=== PATIENT | male | born 1945 | race Caucasian/White ===

== ENCOUNTER → 2016-07-17 | Outpatient (REF) | payer MEDICARE, OTHER ==
[2016-07-17 11:35] LABS: ALBUMIN 4.3 GM/DL (3.2-5.2); ALBUMIN/GLOBULIN RATIO 1.34 (1.00-1.93); ALKALINE PHOSPHATASE 71 U/L (45-117); ALT/SGPT 16 U/L (12-78); ANION GAP 7 MEQ/L (8-16); AST/SGOT 21 U/L (15-37); BILIRUBIN,TOTAL 1.4 MG/DL (0.2-1.0); BLOOD UREA NITROGEN 12 MG/DL (7-18); CARBON DIOXIDE LEVEL 29 MEQ/L (21-32); CHLORIDE LEVEL 108 MEQ/L (98-107); CHOLESTEROL LEVEL 197 MG/DL (<200); CREATININE FOR GFR 1.08 MG/DL (0.70-1.30); GLOMERULAR FILTRATION RATE > 60.0 (>49); GLUCOSE, FASTING 102 MG/DL (80-110); POTASSIUM SERUM 4.1 MEQ/L (3.5-5.1); SODIUM LEVEL 144 MEQ/L (136-145); TOTAL PROTEIN 7.5 GM/DL (6.4-8.2); TRIGLYCERIDES LEVEL 63 MG/DL (<150)
== END ==
LOC: M SFHCPLAZ 08:26
PROVIDERS: ATTEND Physician Assistant
DX: E78.5 Hyperlipidemia, unspecified (principal)

== ENCOUNTER → 2016-09-16 | Outpatient (REF) | payer MEDICARE, OTHER ==
[2016-09-16 13:00] LABS: TOTAL PROTEIN 6.7 GM/DL (6.4-8.2)
[2016-09-16 13:09] LABS: REASON FOR REVIEW COMPREHENSIVE REVIEW
[2016-09-18 12:06] LABS: ALBUMIN 4.17 GM/DL (3.29-5.55); ALBUMIN % 62.2 % (55.8-66.1); GAMMA GLOBULIN % 12.2 % (11.1-18.8)
== END ==
LOC: M SFHCPLAZ 08:24
PROVIDERS: ATTEND Family Medicine
DX: D72.821 Monocytosis (symptomatic) (principal)

== ENCOUNTER → 2016-09-23 | Outpatient (REF) | payer MEDICARE, OTHER ==
[2016-09-23 18:14] LABS: BASO % 0.6 % (0.0-1.0); EOS # 0.3 K/mm3 (0.0-0.50); EOS % 4.1 % (0.0-3.0); LARGE UNSTAINED CELL # 0.2 K/mm3 (0.0-0.4); LARGE UNSTAINED CELL % 3.7 % (0.0-4.0); LYMPH # 1.6 K/mm3 (1.5-4.5); LYMPH % 22.7 % (24.0-44.0); MEAN CORPUSCULAR VOLUME 99.8 fl (80.0-96.0); MONO # 0.5 K/mm3 (0.0-0.8); MONO % 8.7 % (0.0-5.0); NEUTROPHILS # 3.8 K/mm3 (1.8-7.7); NEUTROPHILS % 60.2 % (36.0-66.0); PLATELET COUNT, AUTOMATED 198 k/mm3 (150-450); RED CELL DISTRIBUTION WIDTH 12.8 % (11.5-14.5); WHITE BLOOD COUNT 6.2 K/mm3 (4.0-10.0)
[2016-09-23 19:07] LABS: FOLATE 15.6 NG/ML (>5.4)
== END ==
LOC: M SFHCPLAZ 15:24
PROVIDERS: ATTEND Physician Assistant
DX: D75.89 Other specified diseases of blood and blood-forming organs (principal); E55.9 Vitamin D deficiency, unspecified
CPT/HCPCS: 36415; 82306; 82607; 82746; 85025; G0463

== ENCOUNTER → 2017-01-16 | Outpatient (CLI) | payer MEDICARE, BC, OTHER ==
--- NOTE | 2017-01-16 10:34 | REP ---
LUMBAR SPINE, SEVEN VIEWS: HISTORY: None provided. There is no acute fracture. The intervertebral discs are decreased in height consistent with disc degeneration. Osteophytes are present throughout the lumbar spine. There is narrowing of the L5-S1 facet joints. IMPRESSION: Degenerative change as described above. Signed by Claude Marquez MD 01/16/2017 11:05 A
--- NOTE | 2017-01-16 10:37 | REP ---
CERVICAL SPINE, NINE VIEWS: HISTORY: None provided. The patient is status post C5-T1 anterior spinal fusion. A fixation plate and bone graft material are present. There is no acute fracture. The C4-5 intervertebral disc is decreased in height consistent with disc degeneration. Osteophytes are present on C4-6. There is narrowing of the C5 and 6 neural foramina secondary to uncinate process hypertrophy. There are 2 mm of anterior subluxation of C3 on 4 and 1.5 mm of anterior subluxation of C4 on 5. This is unchanged with flexion and reduces with extension. IMPRESSION: 1. The patient is status post C5-T1 anterior spinal fusion. 2. Degenerative change as described above. Signed by Claude Marquez MD 01/16/2017 11:06 A
== END ==
LOC: M RAD 09:15
PROVIDERS: ATTEND Physician Assistant
DX: M54.5 Low back pain (principal); R29.898 Other symptoms and signs involving the musculoskeletal system; M50.321 Other cervical disc degeneration at C4-C5 level; M50.822 Other cervical disc disorders at C5-C6 level; M51.36 Other intervertebral disc degeneration, lumbar region; M51.37 Other intervertebral disc degeneration, lumbosacral region; Z98.1 Arthrodesis status

== ENCOUNTER → 2017-02-10 | Outpatient (REF) | payer MEDICARE, BC, OTHER ==
[2017-02-10 13:51] LABS: ALBUMIN 3.9 GM/DL (3.2-5.2); ALBUMIN/GLOBULIN RATIO 1.26 (1.00-1.93); ALKALINE PHOSPHATASE 61 U/L (45-117); ALT/SGPT 18 U/L (12-78); ANION GAP 7 MEQ/L (8-16); AST/SGOT 18 U/L (15-37); BILIRUBIN,DIRECT 0.3 MG/DL (0.0-0.2); BILIRUBIN,TOTAL 1.3 MG/DL (0.2-1.0); BLOOD UREA NITROGEN 10 MG/DL (7-18); CALCIUM LEVEL 9.3 MG/DL (8.8-10.2); CARBON DIOXIDE LEVEL 29 MEQ/L (21-32); CHLORIDE LEVEL 105 MEQ/L (98-107); GLOMERULAR FILTRATION RATE > 60.0 (>49); GLUCOSE, FASTING 105 MG/DL (80-110); SODIUM LEVEL 141 MEQ/L (136-145)
[2017-02-10 14:20] LABS: BASO % 0.3 % (0.0-1.0); EOS # 0.2 K/mm3 (0.0-0.50); LARGE UNSTAINED CELL # 0.1 K/mm3 (0.0-0.4); LARGE UNSTAINED CELL % 2.9 % (0.0-4.0); LYMPH # 0.8 K/mm3 (1.5-4.5); LYMPH % 25.1 % (24.0-44.0); MEAN CORPUSCULAR HEMOGLOBIN 35.6 pg (27.0-33.0); MEAN CORPUSCULAR HGB CONC 34.9 g/dl (32.0-36.5); MONO # 0.3 K/mm3 (0.0-0.8); MONO % 8.3 % (0.0-5.0); NEUTROPHILS # 1.9 K/mm3 (1.8-7.7); NEUTROPHILS % 58.4 % (36.0-66.0); PLATELET COUNT, AUTOMATED 166 k/mm3 (150-450); RED CELL DISTRIBUTION WIDTH 12.4 % (11.5-14.5); WHITE BLOOD COUNT 3.2 K/mm3 (4.0-10.0)
[2017-02-10 14:34] LABS: VITAMIN B12 LEVEL 561 PG/ML
[2017-02-10 14:35] LABS: FOLATE > 24.0 NG/ML
== END ==
LOC: M SFHCPLAZ 11:27
PROVIDERS: ATTEND Family Medicine
DX: E80.6 Other disorders of bilirubin metabolism (principal); D75.89 Other specified diseases of blood and blood-forming organs
CPT/HCPCS: 80053; 82248; 82607; 82746; 85025; G0463

== ENCOUNTER → 2017-04-09 | Outpatient (CLI) | payer MEDICARE, BC, OTHER ==
--- NOTE | 2017-04-09 09:05 | REP ---
RIGHT UPPER QUADRANT ULTRASOUND: Real-time sonographic evaluation of the right upper quadrant performed. Several tiny polyps are seen within the gallbladder without evidence of gallstones. There is no gallbladder wall thickening or pericholecystic fluid. There is no intrahepatic or extrahepatic biliary dilatation, common bile duct measuring 5 mm in diameter. The liver and pancreas demonstrate homogeneous echotexture with no gross mass. Right kidney demonstrates no hydronephrosis or nephrolithiasis with normal size at 11.3 cm in length. IMPRESSION: Several tiny polyps in the gallbladder. No gallstones, gallbladder wall thickening, pericholecystic fluid or biliary dilatation. Signed by Tony Gamez MD 04/09/2017 04:40 P
== END ==
LOC: M RAD 07:12
PROVIDERS: ATTEND Family Medicine
DX: E80.6 Other disorders of bilirubin metabolism (principal); K82.8 Other specified diseases of gallbladder; D72.821 Monocytosis (symptomatic)

== ENCOUNTER → 2017-04-09 | Outpatient (REF) | payer MEDICARE, OTHER ==
[2017-04-09 12:21] LABS: ALBUMIN 3.9 GM/DL (3.2-5.2); ALBUMIN/GLOBULIN RATIO 1.22 (1.00-1.93); ALKALINE PHOSPHATASE 66 U/L (45-117); ALT/SGPT 15 U/L (12-78); AST/SGOT 21 U/L (15-37); BILIRUBIN,DIRECT 0.3 MG/DL (0.0-0.2); BILIRUBIN,TOTAL 1.3 MG/DL (0.2-1.0); TOTAL PROTEIN 7.1 GM/DL (6.4-8.2)
[2017-04-10 12:10] LABS: ALBUMIN 4.33 GM/DL (3.29-5.55); GAMMA GLOBULIN % 12.8 % (11.1-18.8)
== END ==
LOC: M SFHCPLAZ 09:09
PROVIDERS: ATTEND Family Medicine
DX: E80.6 Other disorders of bilirubin metabolism (principal); D72.821 Monocytosis (symptomatic)

== ENCOUNTER → 2017-04-21 | Outpatient (REF) | payer MEDICARE, OTHER ==
[2017-04-21 17:26] LABS: REASON FOR REVIEW COMPREHENSIVE REVIEW
== END ==
LOC: M SFHCPLAZ 14:56
PROVIDERS: ATTEND Family Medicine
DX: Z00.00 Encounter for general adult medical examination without abnormal findings (principal); E80.6 Other disorders of bilirubin metabolism; D53.9 Nutritional anemia, unspecified; E78.00 Pure hypercholesterolemia, unspecified; Z12.5 Encounter for screening for malignant neoplasm of prostate; Z11.59 Encounter for screening for other viral diseases; K82.4 Cholesterolosis of gallbladder; Z13.6 Encounter for screening for cardiovascular disorders; Z12.12 Encounter for screening for malignant neoplasm of rectum
CPT/HCPCS: 36415; 80061; 82270; 83010; 83540; 86704; G0103; G0463; G0472

== ENCOUNTER → 2017-04-24 | Outpatient (CLI) | payer MEDICARE, BC, OTHER ==
--- NOTE | 2017-04-24 11:03 | REP ---
Abdominal aorta ultrasound: Abdominal Aortic Measurements are as follows: Proximal 323 the AP 3.0 cm TRV Renal Artery Level 2.0 cm AP 2.8 cm TRV Mid Aorta 2.2 cm AP 1.8 cm TRV Distal Aorta 1.6 cm AP 1.7 cm TRV R Iliac Artery 8.8 cm AP 11.0 cm TRV L Iliac Artery 8.9 cm AP 9.8 cm TRV No abdominal aortic aneurysm. The proximal abdominal aorta is borderline dilated. Signed by Tony Adhikari MD 04/24/2017 10:54 A
== END ==
LOC: M RAD 08:38
PROVIDERS: ATTEND Family Medicine
DX: Z13.6 Encounter for screening for cardiovascular disorders (principal)

== ENCOUNTER → 2017-08-19 | Outpatient (REF) | payer MEDICARE, OTHER ==
[2017-08-19 14:02] LABS: C REACTIVE PROTEIN QUANTITATIV < 0.30 MG/DL (0.00-0.30); FREE T4 0.94 NG/DL (0.76-1.46)
[2017-08-19 14:08] LABS: BASO % 0.8 % (0.0-1.0); EOS # 0.2 10^3/uL (0.0-0.50); HEMATOCRIT 41.7 % (42.0-52.0); HEMOGLOBIN 14.7 g/dl (14.0-18.0); IMMATURE GRANULOCYTE % 0.5 % (0-3.0); LYMPH # 0.8 10^3/uL (1.5-4.5); MEAN CORPUSCULAR HEMOGLOBIN 35.4 pg (27.0-33.0); MEAN CORPUSCULAR HGB CONC 35.3 g/dl (32.0-36.5); MEAN CORPUSCULAR VOLUME 100.5 fl (80.0-96.0); MONO # 0.5 10^3/uL (0.0-0.8); MONO % 11.8 % (0.0-5.0); NEUTROPHILS # 2.3 10^3/uL (1.8-7.7); NEUTROPHILS % 58.9 % (36.0-66.0); PLATELET COUNT, AUTOMATED 163 10^3/uL (150-450); RED BLOOD COUNT 4.15 10^6/uL (4.30-6.10); RED CELL DISTRIBUTION WIDTH 12.5 % (11.5-14.5); WHITE BLOOD COUNT 3.8 10^3/uL (4.0-10.0)
[2017-08-19 14:58] LABS: ERYTHROCYTE SEDIMENTATION RATE 10 mm/hr (0-20)
== END ==
LOC: M SFHCPLAZ 12:19
DX: D53.9 Nutritional anemia, unspecified (principal); R53.82 Chronic fatigue, unspecified; Z79.899 Other long term (current) drug therapy
CPT/HCPCS: 84443

== ENCOUNTER → 2017-09-30 | Outpatient (REF) | payer MEDICARE, OTHER ==
[2017-09-30 13:57] LABS: TOTAL PROTEIN 7.3 GM/DL (6.4-8.2)
[2017-09-30 18:21] LABS: URINE TOTAL PROTEIN 6.5 MG/DL (0-12)
[2017-10-01 13:02] LABS: ALBUMIN 4.48 GM/DL (3.29-5.55); ALBUMIN % 61.4 % (55.8-66.1); ALPHA-1-GLOBULINS 0.29 GM/DL (0.17-0.41); ALPHA-2-GLOBULINS 0.74 GM/DL (0.42-0.99); ALPHA-2-GLOBULINS % 10.1 % (7.1-11.8); BETA-1-GLOBULINS 0.45 GM/DL (0.28-0.60); BETA-1-GLOBULINS % 6.1 % (4.7-7.2); BETA-2-GLOBULINS 0.42 GM/DL (0.19-0.55); BETA-2-GLOBULINS % 5.8 % (3.2-6.5); GAMMA GLOBULIN % 12.6 % (11.1-18.8); GAMMA GLOBULINS 0.92 GM/DL (0.65-1.58)
[2017-10-01 14:04] LABS: UPEP INTERPRETATION NO M-SPIKE NOTED; URINE VOLUME RANDOM ML
== END ==
LOC: M SFHCPLAZ 12:03
DX: D72.821 Monocytosis (symptomatic) (principal)
CPT/HCPCS: 84165

== ENCOUNTER → 2017-10-28 | Outpatient (REF) | payer MEDICARE, OTHER ==
[2017-10-28 16:07] LABS: VITAMIN B12 LEVEL 589 PG/ML (247-911)
== END ==
LOC: M SFHCPLAZ 12:53
DX: G62.9 Polyneuropathy, unspecified (principal)
CPT/HCPCS: 82607

== ENCOUNTER → 2017-10-30 | Outpatient (REF) | payer MEDICARE, OTHER | LOC: M SFHCPLAZ 13:59 | DX: M54.9 Dorsalgia, unspecified (principal) | CPT/HCPCS: 36415 ==

== ENCOUNTER → 2018-04-23 | Outpatient (REF) | payer MEDICARE, OTHER ==
[2018-04-23 14:04] LABS: CHOLESTEROL LEVEL 182 MG/DL (<200); HDL CHOLESTEROL 70 MG/DL (>40); LDL CHOLESTEROL 98 MG/DL (<100); NON-HDL-C 112 MG/DL; TRIGLYCERIDES LEVEL 68 MG/DL (<150)
[2018-04-23 14:21] LABS: BASO % 0.7 % (0.0-1.0); EOS # 0.2 10^3/uL (0.0-0.50); EOS % 5.2 % (0.0-3.0); HEMATOCRIT 41.5 % (42.0-52.0); HEMOGLOBIN 14.4 g/dl (13.5-17.5); IMMATURE GRANULOCYTE % 1.7 % (0-3.0); LYMPH # 0.8 10^3/uL (1.5-4.5); MEAN CORPUSCULAR HEMOGLOBIN 35.8 pg (27.0-33.0); MEAN CORPUSCULAR HGB CONC 34.7 g/dl (32.0-36.5); MEAN CORPUSCULAR VOLUME 103.2 fl (80.0-96.0); MONO # 0.6 10^3/uL (0.0-0.8); MONO % 13.5 % (0.0-5.0); NEUTROPHILS # 2.5 10^3/uL (1.8-7.7); NEUTROPHILS % 59.9 % (36.0-66.0); PLATELET COUNT, AUTOMATED 178 10^3/uL (150-450); RED BLOOD COUNT 4.02 10^6/uL (4.30-6.10); RED CELL DISTRIBUTION WIDTH 12.4 % (11.5-14.5); WHITE BLOOD COUNT 4.2 10^3/uL (4.0-10.0)
== END ==
LOC: M SFHCPLAZ 11:09
DX: D72.1 Eosinophilia (principal); E78.5 Hyperlipidemia, unspecified
CPT/HCPCS: 80061

== ENCOUNTER → 2018-10-08 | Outpatient (CLI) | payer MEDICARE, BC, OTHER ==
--- NOTE | 2018-10-08 16:23 | REP ---
UNILATERAL LEFT RIBS, PA CHEST: HISTORY: Abnormal x-ray. The lungs are clear. The heart is normal in size. The pulmonary vasculature is normal in appearance. The bony structure is intact. IMPRESSION:No acute disease. Electronically Signed by Claude Marquez MD 10/08/2018 04:24 P
== END ==
LOC: M RAD 14:40
PROVIDERS: ATTEND Family Medicine
DX: R93.89 Abnormal findings on diagnostic imaging of other specified body structures (principal)

== ENCOUNTER 2018-11-10 10:28 | Outpatient (RCR) | payer MEDICARE, BC, OTHER | END 2018-11-13 | LOC: M OT 10:28 | PROVIDERS: ATTEND Family Medicine | DX: R29.898 Other symptoms and signs involving the musculoskeletal system (principal) ==

== ENCOUNTER 2018-11-17 12:57 | Outpatient (RCR) | payer MEDICARE, BC, OTHER | END 2018-12-13 | LOC: M OT 12:57 | PROVIDERS: ATTEND Family Medicine | DX: R29.898 Other symptoms and signs involving the musculoskeletal system (principal) ==

== ENCOUNTER → 2019-07-02 | Outpatient (CLI) | payer MEDICARE, BC, OTHER ==
[2019-07-02 12:13] LABS: BASO % 0.6 % (0.0-1.0); EOS # 0.3 10^3/uL (0.0-0.5); EOS % 9.8 % (0.0-3.0); HEMATOCRIT 41.5 % (42.0-52.0); HEMOGLOBIN 13.7 g/dl (13.5-17.5); LYMPH # 0.8 10^3/uL (1.5-5.0); LYMPH % 21.6 % (24.0-44.0); MEAN CORPUSCULAR HEMOGLOBIN 34.6 pg (27.0-33.0); MEAN CORPUSCULAR VOLUME 104.8 fl (80.0-96.0); MONO # 0.7 10^3/uL (0.0-0.8); MONO % 20.4 % (0.0-5.0); NEUTROPHILS # 1.6 10^3/uL (1.5-8.5); NEUTROPHILS % 46.7 % (36.0-66.0); PLATELET COUNT, AUTOMATED 168 10^3/uL (150-450); RED BLOOD COUNT 3.96 10^6/uL (4.30-6.10); WHITE BLOOD COUNT 3.5 10^3/uL (4.0-10.0)
[2019-07-02 12:46] LABS: ALT/SGPT 13 U/L (12-78); BILIRUBIN,DIRECT 0.4 MG/DL (0.0-0.2); BILIRUBIN,TOTAL 1.6 MG/DL (0.2-1.0); BLOOD UREA NITROGEN 15 MG/DL (7-18); CALCIUM LEVEL 8.8 MG/DL (8.8-10.2); CARBON DIOXIDE LEVEL 28 MEQ/L (21-32); CHLORIDE LEVEL 106 MEQ/L (98-107); CHOLESTEROL LEVEL 179 MG/DL (<200); CHOLESTEROL RISK RATIO 2.594 (<5); CREATININE FOR GFR 0.99 MG/DL (0.70-1.30); FREE T4 1.06 NG/DL (0.76-1.46); GLOMERULAR FILTRATION RATE > 60.0 (>42); GLUCOSE, FASTING 97 MG/DL (70-100); HDL CHOLESTEROL 69 MG/DL (>40); LDL CHOLESTEROL 100 MG/DL (<100); NON-HDL-C 110 MG/DL; POTASSIUM SERUM 3.9 MEQ/L (3.5-5.1); SODIUM LEVEL 141 MEQ/L (136-145); TOTAL PROTEIN 7.1 GM/DL (6.4-8.2); TRIGLYCERIDES LEVEL 52 MG/DL (<150)
[2019-07-02 12:50] LABS: PTH INTACT 41.5 PG/ML (18.5-88.0)
[2019-07-02 12:51] LABS: VITAMIN B12 LEVEL 1075 PG/ML (247-911)
== END ==
LOC: M PLALAB 09:02
PROVIDERS: ATTEND Physician Assistant Medical
DX: E78.5 Hyperlipidemia, unspecified (principal); E80.6 Other disorders of bilirubin metabolism; D75.89 Other specified diseases of blood and blood-forming organs; E55.9 Vitamin D deficiency, unspecified; R53.82 Chronic fatigue, unspecified

== ENCOUNTER → 2019-08-11 | Outpatient (CLI) | payer MEDICARE, BC, OTHER ==
--- NOTE | 2019-08-11 16:47 | REPPI ---
RIGHT WRIST, FOUR VIEWS: Four views of the right wrist were performed. No acute fracture or dislocation is seen. There is mild radiocarpal joint space narrowing and subchondral sclerosis. There is moderate narrowing with subchondral sclerosis and spurring at the joint between the trapezium and base of first metacarpal. IMPRESSION: Arthritic changes. Electronically Signed by Tony Gamez MD 08/12/2019 10:33 A
== END ==
LOC: M PLAIMG 14:09
PROVIDERS: ATTEND Physician Assistant Medical
DX: M19.031 Primary osteoarthritis, right wrist (principal)

== ENCOUNTER → 2019-08-16 | Outpatient (CLI) | payer MEDICARE, BC, OTHER ==
[2019-08-16 14:11] LABS: BLOOD UREA NITROGEN 12 MG/DL (7-18); CREATININE FOR GFR 0.93 MG/DL (0.70-1.30); GLOMERULAR FILTRATION RATE > 60.0 (>42)
== END ==
LOC: M PLALAB 10:39
PROVIDERS: ATTEND Physician Assistant Medical
DX: H53.9 Unspecified visual disturbance (principal)

== ENCOUNTER → 2019-08-18 | Outpatient (CLI) | payer MEDICARE, BC, OTHER ==
[~2019-08-18] MED LIST: PROHANCE 279.3MG/ML 15ML VIAL (A9576) As Ordered ONE; PROHANCE 279.3MG/ML 5ML VIAL (A9576) As Ordered ONE
--- NOTE | 2019-08-18 20:27 | REPVR ---
PROCEDURE INFORMATION: Exam: MR Head Without and With Contrast Exam date and time: 08/18/2019 7:25 PM Age: 74 years old Clinical indication: Visual disturbance TECHNIQUE: Imaging protocol: MR of the head without and with intravenous contrast. Contrast material: PROHANCE; Contrast volume: 16 ml; Contrast route: IV; COMPARISON: No relevant prior studies available. FINDINGS: Brain: Nonspecific T2/FLAIR hyperintensities of the periventricular and deep subcortical white matter, most likely secondary to chronic small vessel ischemic change. No intracranial hemorrhage or extra-axial fluid collection. No evidence of mass effect or midline shift. No areas of abnormal enhancement. No restricted diffusion to suggest acute infarct. Ventricles: Prominence of the ventricles and sulci, likely attributed to parenchymal volume loss. Bones/joints: Unremarkable. Soft tissues: Unremarkable. Sinuses: Unremarkable. Mastoid air cells: No mastoid effusion. Orbits: Unremarkable. IMPRESSION: 1. No acute intracranial pathology. 2. Other chronic findings, as above. Electronically signed by: Estiven Mckinney On 08/18/2019 20:26:59 PM
== END ==
LOC: M RAD 17:47
PROVIDERS: ATTEND Physician Assistant Medical
DX: H53.9 Unspecified visual disturbance (principal)
CPT/HCPCS: 70553; A9576

== ENCOUNTER → 2019-11-09 | Outpatient (CLI) | payer MEDICARE, OTHER ==
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
== END ==
LOC: M PAIN 09:15
PROVIDERS: ATTEND Nurse Practitioner Family
DX: M48.062 Spinal stenosis, lumbar region with neurogenic claudication (principal)

== ENCOUNTER → 2020-01-17 | Outpatient (REF) | payer MEDICARE, OTHER ==
[2020-02-13 20:25] LABS: BASO % 0.8 % (0.0-1.0); EOS # 0.3 10^3/uL (0.0-0.5); EOS % 8.5 % (0.0-3.0); HEMATOCRIT 40.4 % (42.0-52.0); HEMOGLOBIN 13.7 g/dl (13.5-17.5); LYMPH # 0.7 10^3/uL (1.5-5.0); LYMPH % 18.3 % (24.0-44.0); MEAN CORPUSCULAR HEMOGLOBIN 34.9 pg (27.0-33.0); MEAN CORPUSCULAR HGB CONC 33.9 g/dl (32.0-36.5); MEAN CORPUSCULAR VOLUME 103.1 fl (80.0-96.0); MONO # 0.5 10^3/uL (0.0-0.8); MONO % 14.1 % (0.0-5.0); NEUTROPHILS # 2.1 10^3/uL (1.5-8.5); PLATELET COUNT, AUTOMATED 153 10^3/uL (150-450); RED BLOOD COUNT 3.92 10^6/uL (4.30-6.10); WHITE BLOOD COUNT 3.6 10^3/uL (4.0-10.0)
[2020-02-13 20:27] LABS: HEMATOCRIT 40.4 % (42.0-52.0)
[2020-02-28 12:00] LABS: ALBUMIN 4.2 GM/DL (3.2-5.2); ALT/SGPT 18 U/L (12-78); BILIRUBIN,TOTAL 1.7 MG/DL (0.2-1.0); BLOOD UREA NITROGEN 15 MG/DL (7-18); CALCIUM LEVEL 9.2 MG/DL (8.8-10.2); CARBON DIOXIDE LEVEL 30 MEQ/L (21-32); CHLORIDE LEVEL 106 MEQ/L (98-107); CREATININE FOR GFR 1.02 MG/DL (0.70-1.30); GLOMERULAR FILTRATION RATE > 60.0 (>42); GLUCOSE, FASTING 95 MG/DL (70-100); POTASSIUM SERUM 4.7 MEQ/L (3.5-5.1); PTH INTACT 33.3 PG/ML (18.5-88.0); SODIUM LEVEL 138 MEQ/L (136-145); TOTAL 25(OH) VITAMIN D 52.2 NG/ML (30.0-100.0); TOTAL PROTEIN 7.1 GM/DL (6.4-8.2); VITAMIN B12 LEVEL 795 PG/ML (247-911)
== END ==
LOC: M SFHCPLAZ 12:24
PROVIDERS: ATTEND Physician Assistant Medical
DX: M62.542 Muscle wasting and atrophy, not elsewhere classified, left hand (principal); D72.1 Eosinophilia; Z79.899 Other long term (current) drug therapy
CPT/HCPCS: 36415; 80053; 82306; 82607; 82747; 83970; 85025; G0103

== ENCOUNTER → 2020-02-09 | Outpatient (CLI) | payer MEDICARE, OTHER | LOC: M PAIN 10:01 | PROVIDERS: ATTEND Nurse Practitioner Family | DX: M47.816 Spondylosis without myelopathy or radiculopathy, lumbar region (principal) ==

== ENCOUNTER → 2020-02-19 | Outpatient (CLI) | payer MEDICARE, BC, OTHER | LOC: M LABSMTC 11:08 | PROVIDERS: ATTEND Anesthesiology | DX: Z20.828 Contact with and (suspected) exposure to other viral communicable diseases (principal) | CPT/HCPCS: C9803; U0003 ==

== ENCOUNTER → 2020-02-24 | Outpatient (CLI) | payer MEDICARE, OTHER ==
[~2020-02-24] MED LIST changes: +ISOVUE-M 300 61% 15ML VIAL As Ordered ONE; +LIDOCAINE 1% SDV 30ML VIAL As Ordered ONE; +NORCO, ANEXSIA 5/325MG TABLET (HYDROcodone/ACETAMINOPHEN) As Ordered ONE; -PROHANCE 279.3MG/ML 15ML VIAL (A9576) As Ordered ONE; -PROHANCE 279.3MG/ML 5ML VIAL (A9576) As Ordered ONE; +methylPREDNISolone SUSP 40MG/ML 1ML VIAL (DEPO MEDROL) As Ordered ONE
--- NOTE | 2020-03-15 10:54 | REP ---
FLURO-GUIDED SPINE INJECTION: CLINICAL: Lower back pain. TECHNIQUE: Intraoperative fluoroscopic imaging using portable C-arm technique. FINDINGS: Intraoperative fluoroscopic images demonstrate needle overlying the lower lumbar spine. Total fluoroscopic time is 20 seconds. IMPRESSION: Status post spine injection at the lumbar level. MTDD
== END ==
LOC: M PAIN 14:30
PROVIDERS: ATTEND Anesthesiology
DX: M51.16 Intervertebral disc disorders with radiculopathy, lumbar region (principal)
CPT/HCPCS: 62323; 77003; G0463; J1030; Q9967

== ENCOUNTER → 2020-03-08 | Outpatient (CLI) | payer MEDICARE, OTHER | LOC: M PAIN 10:31 | PROVIDERS: ATTEND Nurse Practitioner Family | DX: M47.816 Spondylosis without myelopathy or radiculopathy, lumbar region (principal) ==

== ENCOUNTER → 2020-05-26 | Outpatient (CLI) | payer MEDICARE, BC, OTHER ==
[~2020-05-26] MED LIST changes: +FLON1SPR NARES; +GLYCCAP PO; -ISOVUE-M 300 61% 15ML VIAL As Ordered ONE; -LIDOCAINE 1% SDV 30ML VIAL As Ordered ONE; -NORCO, ANEXSIA 5/325MG TABLET (HYDROcodone/ACETAMINOPHEN) As Ordered ONE; +OSTE1TAB2 PO; +REFR0.5D8 OP; +SALI0.6530 NARES; -methylPREDNISolone SUSP 40MG/ML 1ML VIAL (DEPO MEDROL) As Ordered ONE
== END ==
LOC: M LABSMTC 10:57
DX: Z01.818 Encounter for other preprocedural examination (principal); Z20.828 Contact with and (suspected) exposure to other viral communicable diseases

== ENCOUNTER → 2020-09-29 | Outpatient (REF) | payer MEDICARE, OTHER ==
[~2020-09-29] MED LIST changes: +COVI100V IM
[2020-09-29 13:09] LABS: BASO % 0.6 % (0.0-1.0); EOS # 0.2 10^3/uL (0.0-0.5); EOS % 6.2 % (0.0-3.0); HEMATOCRIT 40.6 % (42.0-52.0); HEMOGLOBIN 13.9 g/dl (13.5-17.5); LYMPH # 0.7 10^3/uL (1.5-5.0); LYMPH % 21.1 % (24.0-44.0); MEAN CORPUSCULAR HEMOGLOBIN 35.5 pg (27.0-33.0); MEAN CORPUSCULAR HGB CONC 34.2 g/dl (32.0-36.5); MEAN CORPUSCULAR VOLUME 103.8 fl (80.0-96.0); MONO # 0.5 10^3/uL (0.0-0.8); MONO % 15.2 % (2.0-8.0); NEUTROPHILS # 1.8 10^3/uL (1.5-8.5); PLATELET COUNT, AUTOMATED 182 10^3/uL (150-450); RED BLOOD COUNT 3.91 10^6/uL (4.30-6.10); WHITE BLOOD COUNT 3.2 10^3/uL (4.0-10.0)
[2020-09-29 13:54] LABS: ALBUMIN 3.9 GM/DL (3.2-5.2); ALT/SGPT 16 U/L (12-78); BILIRUBIN,DIRECT 0.3 MG/DL (0.0-0.2); BILIRUBIN,TOTAL 0.9 MG/DL (0.2-1.0); BLOOD UREA NITROGEN 15 MG/DL (7-18); CALCIUM LEVEL 9.5 MG/DL (8.8-10.2); CARBON DIOXIDE LEVEL 29 MEQ/L (21-32); CHLORIDE LEVEL 104 MEQ/L (98-107); CHOLESTEROL LEVEL 190 MG/DL (<200); CHOLESTEROL RISK RATIO 2.878 (<5); CREATININE FOR GFR 0.88 MG/DL (0.70-1.30); GLOMERULAR FILTRATION RATE > 60.0 (>42); GLUCOSE, FASTING 110 MG/DL (70-100); HDL CHOLESTEROL 66 MG/DL (>40); LDH LACTATE DEHYDROGENASE 237 U/L (87-241); LDL CHOLESTEROL 111 MG/DL (<100); NON-HDL-C 124 MG/DL; POTASSIUM SERUM 4.2 MEQ/L (3.5-5.1); PTH INTACT 43.4 PG/ML (18.5-88.0); SODIUM LEVEL 138 MEQ/L (136-145); TOTAL 25(OH) VITAMIN D 32.7 NG/ML (30.0-100.0); TOTAL PROTEIN 7.1 GM/DL (6.4-8.2); TRIGLYCERIDES LEVEL 63 MG/DL (<150); VITAMIN B12 LEVEL 593 PG/ML (247-911)
== END ==
LOC: M SFHCPLAZ 11:22
PROVIDERS: ATTEND Physician Assistant Medical
DX: E78.5 Hyperlipidemia, unspecified (principal); E53.8 Deficiency of other specified B group vitamins; E55.9 Vitamin D deficiency, unspecified; E80.6 Other disorders of bilirubin metabolism; D75.89 Other specified diseases of blood and blood-forming organs
CPT/HCPCS: 36415; 80053; 80061; 82248; 82306; 82607; 83615; 83970; 85025; G0463

== ENCOUNTER → 2020-10-18 | Outpatient (CLI) | payer MEDICARE, BC, OTHER ==
[~2020-10-18] MED LIST changes: -COVI100V IM
--- NOTE | 2020-10-18 14:40 | REP ---
INDICATION: DYSEQUILBRIUM COMPARISON: None. TECHNIQUE: Real-time ultrasound evaluation and duplex Doppler interrogation of the extracranial carotid vasculature is performed. FINDINGS: Antegrade flow is observed in both vertebral arteries. Right carotid: The right common carotid artery shows diffuse intimal thickening but is otherwise unremarkable. There mild to moderate mixed plaquing in the right carotid bulb and proximal ICA on two-dimensional scanning. Color flow and spectral Doppler interrogation are unremarkable on the right. Velocity chart right carotid: Right CCA PSV: 73 cm/S Right ICA PSV: 97 cm/S Right ICA EDV: 22 cm/S Right ECA PSV: 85 cm/S Right ICA/CCA ratio: 1.33 Left carotid: The left common carotid artery shows diffuse intimal thickening but is otherwise unremarkable. There is mild to moderate mixed plaquing in the left carotid bulb and proximal ICA on two-dimensional scanning. Color flow and spectral Doppler interrogation are unremarkable on the left. Velocity chart left carotid: Left CCA PSV: 90 cm/S Left ICA PSV: 61 cm/S Left ICA EDV: 24 cm/S Left ECA PSV: 67 cm/S Left ICA/CCA ratio: 0.68 IMPRESSION: Less than 50% category narrowing in the right internal carotid artery by Doppler velocity criteria. Less than 50% category narrowing in the left ICA by Doppler velocity criteria. <Electronically signed by Forrest Mejias > 10/18/20 [id number]
== END ==
LOC: M RAD 13:47
PROVIDERS: ATTEND Physician Assistant Medical
DX: R42 Dizziness and giddiness (principal); R09.89 Other specified symptoms and signs involving the circulatory and respiratory systems

== ENCOUNTER → 2020-11-07 | Outpatient (CLI) | payer MEDICARE, BC, OTHER ==
[~2020-11-07] MED LIST changes: +COVI100V IM; +ISOVUE-300 61% 50ML VIAL As Ordered ONE; +PROHANCE 279.3MG/ML 5ML VIAL As Ordered ONE
--- NOTE | 2020-11-07 09:54 | REP ---
INDICATION: SOFT TISSUE DISORDER RIGHT WRIST. COMPARISON: None TECHNIQUE: The procedure was performed by Giselle Trevizo [facility], under the direct supervision of Dr. Mejias. The benefits and risks of the procedure were explained to the patient, and an informed consent was obtained. Directly prior to the start of the procedure, a formal time-out was completed in the procedure room. The right radioscaphoid joint space was localized using fluoroscopic guidance. The skin was prepped and draped in a sterile fashion. Using a 25 gauge needle approximately 1 mL of 1% Lidocaine 10 mg/ml was used as a local anesthetic. This same needle was advanced into the right radioscaphoid joint space. Approximately 1 mL of Isovue 300 was injected to verify placement. Six mL of a solution containing 20 mL of sterile saline and 0.15 mL of ProHance was injected into the joint space. The needle was removed and the patient was taken to MRI for post procedural imaging. FINDINGS: The patient tolerated the procedure well and there were no immediate complications. IMPRESSION: Fluoroscopic guided right radioscaphoid joint MRI arthrogram injection. 0.2 minutes of fluoroscopy time was utilized for this procedure. Some fluoroscopic images are performed with last image hold technology. These images require no additional radiation. <Electronically signed by Giselle Trevizo > 11/07/20 0901 <Electronically signed by Forrest Mejias > 11/07/20 0937
--- NOTE | 2020-11-07 13:09 | REP ---
INDICATION: SOFT TISSUE DISORDER RIGHT WRIST. Assess for possible rupture of the flexi carpi radialis tendon or other intra-articular disorder of the right wrist. Patient's pain volar aspect middle of the right wrist. COMPARISON: Comparison wrist radiographs are from August [id number].. TECHNIQUE: The injection procedure is performed and dictated separately. Pre-injection and post injection MR imaging of the right wrist were is performed in all 3 planes. T1 and T2 weighted scans are included. FINDINGS: There is moderate osteoarthritis at the 1st carpometacarpal articulation and there is subcortical cyst formation in the base of the 1st metacarpal as seen radiographically. The largest cyst here measures 7 mm in greatest diameter. There is subcortical cyst formation at the navicula- multangular articulation as well involving the distal navicular bone. There are small subcortical cysts in the dorsal aspect of the lunate and in the dorsal aspect of the triquetrum. No juxta-articular cyst or fluid collection is seen. There is no evidence of flexor or extensor tendinopathy. The carpal tunnel and its contents appear intact and unremarkable. The flexor carpi radialis tendon appears intact. In the triangular fibrocartilage is attenuated near its radial insertion. There is increased signal intensity in the triangular fibrocartilage diffusely on coronal T1 weighted scans. Post injection imaging shows partial intra-articular injection with injection artifact partially filling the dorsal extensor tendon sheath over the navicula. There is contrast filling the radiocarpal and middle carpal row. There is also some contrast in the distal radioulnar joint confirming a perforation of the triangular fibrocartilage. No other MR arthrographic finding. IMPRESSION: 1. Degenerative tear of the triangular fibrocartilage. 2. 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 3. Scattered subcortical cysts in the lunate and triquetrum carpal bones. 4. No evidence of FCR tendon or other tendon tear. <Electronically signed by Forrest Mejias > 11/07/20 [id number]
== END ==
LOC: M RADPRO 06:22
PROVIDERS: ATTEND Orthopaedic Surgery Sports Medicine
DX: M19.031 Primary osteoarthritis, right wrist (principal)
CPT/HCPCS: 25246; 73223; 77002; A9576; Q9967

== ENCOUNTER → 2021-02-26 | Outpatient (CLI) | payer MEDICARE, BC, OTHER ==
[~2021-02-26] MED LIST changes: -ISOVUE-300 61% 50ML VIAL As Ordered ONE; -PROHANCE 279.3MG/ML 5ML VIAL As Ordered ONE
[2021-02-26 13:36] LABS: BASO % 0.5 % (0.0-1.0); EOS # 0.2 10^3/uL (0.0-0.5); EOS % 5.4 % (0.0-3.0); HEMATOCRIT 41.7 % (42.0-52.0); HEMOGLOBIN 14.4 g/dl (13.5-17.5); LYMPH # 0.8 10^3/uL (1.5-5.0); MEAN CORPUSCULAR HEMOGLOBIN 35.6 pg (27.0-33.0); MEAN CORPUSCULAR HGB CONC 34.5 g/dl (32.0-36.5); MONO # 0.5 10^3/uL (0.0-0.8); MONO % 12.7 % (2.0-8.0); NEUTROPHILS # 2.5 10^3/uL (1.5-8.5); NEUTROPHILS % 60.7 % (36.0-66.0); PLATELET COUNT, AUTOMATED 165 10^3/uL (150-450); RED BLOOD COUNT 4.05 10^6/uL (4.30-6.10); WHITE BLOOD COUNT 4.1 10^3/uL (4.0-10.0)
[2021-02-26 14:58] LABS: MALB URINE SIEMENS 19.2 MG/L
[2021-02-26 15:53] LABS: ALBUMIN 3.9 GM/DL (3.2-5.2); ALT/SGPT 15 U/L (12-78); BILIRUBIN,TOTAL 1.6 MG/DL (0.2-1.0); BLOOD UREA NITROGEN 17 MG/DL (7-18); CALCIUM LEVEL 9.2 MG/DL (8.8-10.2); CARBON DIOXIDE LEVEL 29 MEQ/L (21-32); CHLORIDE LEVEL 106 MEQ/L (98-107); CHOLESTEROL LEVEL 178 MG/DL (<200); CHOLESTEROL RISK RATIO 3.016 (<5); CPK CREATINE PHOSPHOKINASE 97 U/L (39-308); CREATININE FOR GFR 0.98 MG/DL (0.70-1.30); FERRITIN 343 NG/ML (26-388); FREE T4 0.91 NG/DL (0.76-1.46); GLOMERULAR FILTRATION RATE > 60.0 (>42); GLUCOSE, FASTING 96 MG/DL (70-100); HDL CHOLESTEROL 59 MG/DL (>40); LDL CHOLESTEROL 110 MG/DL (<100); NON-HDL-C 119 MG/DL; NT-PRO BNP 58 PG/ML (<125); POTASSIUM SERUM 3.8 MEQ/L (3.5-5.1); SODIUM LEVEL 140 MEQ/L (136-145); TOTAL PROTEIN 7.3 GM/DL (6.4-8.2); TRIGLYCERIDES LEVEL 46 MG/DL (<150)
[2021-02-28 05:08] LABS: FREE KAPPA LIGHT CHAINS URINE 25.29 mg/L (0.63-113.79); FREE LAMBDA LIGHT CHAINS SERUM 18.3 mg/L (5.7-26.3); FREE LAMBDA LIGHT CHAINS URINE 3.81 mg/L (0.47-11.77); INSULIN LEVEL 11.3 uIU/mL (2.6-24.9); KAPPA/LAMBDA RATIO SERUM 1.75 (0.26-1.65); KAPPA/LAMBDA RATIO URINE 6.64 (1.03-31.76)
== END ==
LOC: M PLALAB 09:56
PROVIDERS: ATTEND Family Medicine
DX: E78.00 Pure hypercholesterolemia, unspecified (principal); I10 Essential (primary) hypertension; Z79.899 Other long term (current) drug therapy

== ENCOUNTER → 2021-03-23 | Outpatient (CLI) | payer MEDICARE, BC, OTHER ==
--- NOTE | 2021-03-23 15:57 | REP ---
INDICATION: STENOSIS RT INTERNAL CAROTID ARTERY COMPARISON: 10/18/2020 TECHNIQUE: Gamez scale and color Doppler evaluation using linear high frequency transducer Findings: FINDINGS: Two-dimensional gamez scale and color images demonstrate moderate bilateral partially calcified atheromatous plaquing (right greater than left) with normal laminar flow. No evidence for significant stenosis or occlusion identified. Color Doppler interrogation demonstrates normal arterial wave patterns and velocities with no significant spectral broadening. Normal flow direction is appreciated in the bilateral vertebral arteries. ICA peak systolic velocity: Right 90.1 cm/s; Left 65.2 cm/s ICA diastolic velocity: Right 28.7 cm/s; Left 27.3 cm/s ECA peak systolic velocity: Right 98.1 cm/s; Left 66.5 cm/s CCA peak systolic velocity: Right 76.4 cm/s; Left 91.9 cm/s ICA/CCA ratio: Right 1.28 cm/s; Left 0.70 cm/s IMPRESSION: Narrowing through the right carotid artery approaches the 50% tawanda. Narrowing through the left carotid artery is in the less than 50% range. <Electronically signed by Tawanda Cook > 03/23/21 [id number]
== END ==
LOC: M RAD 14:33
PROVIDERS: ATTEND Psychiatry & Neurology Neurology
DX: I65.21 Occlusion and stenosis of right carotid artery (principal)

== ENCOUNTER → 2021-05-22 | Outpatient (CLI) | payer MEDICARE, BC, OTHER ==
[2021-05-22 11:31] LABS: CHOLESTEROL RISK RATIO 2.531 (<5)
== END ==
LOC: M PLALAB 09:48
PROVIDERS: ATTEND Physician Assistant Medical
DX: E78.00 Pure hypercholesterolemia, unspecified (principal)

== ENCOUNTER → 2021-06-13 | Outpatient (CLI) | payer MEDICARE, BC, OTHER ==
--- NOTE | 2021-06-13 14:38 | REP ---
INDICATION: LOW BACK PAIN. COMPARISON: 09/25/2020 from an outside institution TECHNIQUE: Three views FINDINGS: There is marginal osteophytosis status quo. There is disc space narrowing status quo. There is no change in appearance of vertebral body height or alignment. Degenerative facet joint changes are seen bilaterally at every level status quo. IMPRESSION: No significant change <Electronically signed by Deo Forbes > 06/13/21 [id number]
== END ==
LOC: M SOG 14:09
PROVIDERS: ATTEND Orthopaedic Surgery
DX: M54.50 Low back pain, unspecified (principal)

== ENCOUNTER → 2021-07-02 | Outpatient (CLI) | payer MEDICARE, BC, OTHER | LOC: M RAD 08:12 | PROVIDERS: ATTEND Orthopaedic Surgery | DX: R93.7 Abnormal findings on diagnostic imaging of other parts of musculoskeletal system (principal); M48.062 Spinal stenosis, lumbar region with neurogenic claudication ==

== ENCOUNTER → 2021-12-26 | Outpatient (CLI) | payer MEDICARE, BC, OTHER ==
[~2021-12-26] MED LIST changes: +ALOE170G; +B-COTAB25 PO; +CARB15DR37 OU; +D200CAP2 PO; +DICL1GEL3 TOP; +FLAX100012 PO; +LATA0.0015 OU; +SINUPOW
[2021-12-26 14:53] LABS: BASO % 0.6 % (0.0-1.0); EOS # 0.2 10^3/uL (0.0-0.5); EOS % 4.9 % (0.0-3.0); HEMOGLOBIN 13.7 g/dl (13.5-17.5); LYMPH # 0.7 10^3/uL (1.5-5.0); LYMPH % 18.7 % (24.0-44.0); MEAN CORPUSCULAR HEMOGLOBIN 36.1 pg (27.0-33.0); MEAN CORPUSCULAR HGB CONC 34.3 g/dl (32.0-36.5); MEAN CORPUSCULAR VOLUME 105.3 fl (80.0-96.0); MONO # 0.4 10^3/uL (0.0-0.8); MONO % 12.6 % (2.0-8.0); NEUTROPHILS # 2.2 10^3/uL (1.5-8.5); NEUTROPHILS % 62.6 % (36.0-66.0); PLATELET COUNT, AUTOMATED 168 10^3/uL (150-450); WHITE BLOOD COUNT 3.5 10^3/uL (4.0-10.0)
[2021-12-26 16:36] LABS: ALBUMIN 3.9 GM/DL (3.2-5.2); ALT/SGPT 19 U/L (12-78); BILIRUBIN,DIRECT 0.4 MG/DL (0.0-0.2); BILIRUBIN,TOTAL 1.4 MG/DL (0.2-1.0); BLOOD UREA NITROGEN 15 MG/DL (7-18); CALCIUM LEVEL 9.4 MG/DL (8.8-10.2); CARBON DIOXIDE LEVEL 29 MEQ/L (21-32); CHLORIDE LEVEL 108 MEQ/L (98-107); CHOLESTEROL LEVEL 147 MG/DL (<200); CHOLESTEROL RISK RATIO 1.934 (<5); CREATININE FOR GFR 0.84 MG/DL (0.70-1.30); GLOMERULAR FILTRATION RATE > 60.0 (>42); GLUCOSE, FASTING 98 MG/DL (70-100); HDL CHOLESTEROL 76 MG/DL (>40); LDL CHOLESTEROL 64 MG/DL (<100); NON-HDL-C 71 MG/DL; POTASSIUM SERUM 4.5 MEQ/L (3.5-5.1); SODIUM LEVEL 142 MEQ/L (136-145); TOTAL PROTEIN 6.8 GM/DL (6.4-8.2); TRIGLYCERIDES LEVEL 36 MG/DL (<150)
[2021-12-26 17:00] LABS: VITAMIN B12 LEVEL 418 PG/ML (247-911)
[2021-12-26 20:59] LABS: HEMOGLOBIN A1c 4.4 %
== END ==
LOC: M PLALAB 10:42
PROVIDERS: ATTEND Physician Assistant Medical
DX: E78.00 Pure hypercholesterolemia, unspecified (principal); R73.01 Impaired fasting glucose; I10 Essential (primary) hypertension; Z12.5 Encounter for screening for malignant neoplasm of prostate; E53.8 Deficiency of other specified B group vitamins; E80.6 Other disorders of bilirubin metabolism
CPT/HCPCS: 36415; 80053; 80061; 82248; 82607; 83036; 85025; G0103

== ENCOUNTER → 2022-04-23 | Outpatient (CLI) | payer MEDICARE, BC, OTHER ==
[2022-04-23 14:11] LABS: HEMATOCRIT 39.5 % (42.0-52.0)
[2022-04-23 15:09] LABS: CHOLESTEROL RISK RATIO 2.057 (<5); FREE T4 0.89 NG/DL (0.76-1.46); THYROID STIMULATING HORMONE 2.44 uIU/ML (0.358-3.740)
== END ==
LOC: M PLALAB 09:46
PROVIDERS: ATTEND Family Medicine
DX: E53.8 Deficiency of other specified B group vitamins (principal); E78.00 Pure hypercholesterolemia, unspecified; D75.89 Other specified diseases of blood and blood-forming organs; Z12.5 Encounter for screening for malignant neoplasm of prostate
CPT/HCPCS: 36415; 80061; 82607; 82728; 82747; 83625; 84439; 84443; 85046; G0103

== ENCOUNTER → 2022-04-26 | Outpatient (CLI) | payer MEDICARE, BC, OTHER | LOC: M RAD 10:59 | PROVIDERS: ATTEND Psychiatry & Neurology Neurology | DX: I65.21 Occlusion and stenosis of right carotid artery (principal) ==

== ENCOUNTER → 2022-08-23 | Outpatient (CLI) | payer MEDICARE, BC, OTHER ==
[~2022-08-23] MED LIST changes: +latanoprost
[2022-08-23 14:03] LABS: CHOLESTEROL RISK RATIO 2.04 (<5); FREE T4 1.02 NG/DL (0.89-1.76); HDL CHOLESTEROL 68.1 MG/DL (>40); HEMATOCRIT 38.2 % (42.0-52.0); LDL CHOLESTEROL 63.1 MG/DL (<100); NON-HDL-C 70.9 MG/DL; THYROID STIMULATING HORMONE 2.962 uIU/ML (0.55-4.78)
[2022-08-23 14:04] LABS: FERRITIN 184.2 NG/ML (10.5-307.3)
== END ==
LOC: M PLALAB 10:10
PROVIDERS: ATTEND Family Medicine
DX: E53.8 Deficiency of other specified B group vitamins (principal); E78.00 Pure hypercholesterolemia, unspecified; D75.89 Other specified diseases of blood and blood-forming organs; Z12.5 Encounter for screening for malignant neoplasm of prostate
CPT/HCPCS: 36415; 80061; 82607; 82728; 82747; 83625; 84439; 84443; 85046; G0103

== ENCOUNTER → 2022-09-27 | Outpatient (CLI) | payer MEDICARE, BC, OTHER ==
[2022-09-27 12:21] LABS: FREE T4 0.95 NG/DL (0.89-1.76); MAGNESIUM LEVEL 2.3 MG/DL (1.8-2.4); THYROID STIMULATING HORMONE 2.545 uIU/ML (0.55-4.78)
[2022-09-28 18:09] LABS: TESTOSTERONE FREE (DIRECT) 8.9 pg/mL (6.6-18.1)
== END ==
LOC: M PLALAB 08:32
PROVIDERS: ATTEND Physician Assistant Medical
DX: M62.59 Muscle wasting and atrophy, not elsewhere classified, multiple sites (principal)

== ENCOUNTER → 2022-12-03 | Outpatient (CLI) | payer MEDICARE, BC, OTHER ==
[~2022-12-03] MED LIST changes: +mag PO
== END ==
LOC: M RAD 08:47
PROVIDERS: ATTEND Internal Medicine Medical Oncology
DX: D61.818 Other pancytopenia (principal)

== ENCOUNTER → 2022-12-25 | Outpatient (CLI) | payer MEDICARE, BC, OTHER ==
[2022-12-25 10:51] LABS: BILIRUBIN,DIRECT 0.6 MG/DL (<0.4); CHOLESTEROL RISK RATIO 2.29 (<5); HDL CHOLESTEROL 57.9 MG/DL (>40); HEMOGLOBIN A1c 4.5 % (4.0-6.0); LDL CHOLESTEROL 66.5 MG/DL (<100); NON-HDL-C 75.1 MG/DL
== END ==
LOC: M PLALAB 08:39
PROVIDERS: ATTEND Physician Assistant Medical
DX: R73.01 Impaired fasting glucose (principal); E78.00 Pure hypercholesterolemia, unspecified; E80.4 Gilbert syndrome; Z12.5 Encounter for screening for malignant neoplasm of prostate
CPT/HCPCS: 36415; 80061; 82248; 83036; G0103

== ENCOUNTER → 2023-01-17 | Outpatient (CLI) | payer MEDICARE, BC, OTHER ==
[~2023-01-17] MED LIST changes: +DICL100G10 TOP; -DICL1GEL3 TOP; +E-Z-GAS II EFFERVESCENT PACKET (SODIUM BICARB./CITRIC ACID/SIMETHICONE) As Ordered ONE; +E-Z-HD 98% w/w 340GM SUSP BTL As Ordered ONE; +E-Z-PAQUE 96% w/w SUSP 176GM BTL As Ordered ONE
== END ==
LOC: M RAD 08:39
PROVIDERS: ATTEND Otolaryngology
DX: R13.10 Dysphagia, unspecified (principal)

== ENCOUNTER → 2023-02-24 | Outpatient (CLI) | payer MEDICARE, BC, OTHER ==
[~2023-02-24] MED LIST changes: +CHEL100T4 PO; -E-Z-GAS II EFFERVESCENT PACKET (SODIUM BICARB./CITRIC ACID/SIMETHICONE) As Ordered ONE; -E-Z-HD 98% w/w 340GM SUSP BTL As Ordered ONE; -E-Z-PAQUE 96% w/w SUSP 176GM BTL As Ordered ONE; +REFR0.5D8 OU; -SINUPOW; +SINUPOW INH; +VITA100093 PO
== END ==
LOC: M PLAIMG 12:47
PROVIDERS: ATTEND Physician Assistant Medical
DX: M47.812 Spondylosis without myelopathy or radiculopathy, cervical region (principal); M50.321 Other cervical disc degeneration at C4-C5 level

== ENCOUNTER → 2023-04-15 | Outpatient (CLI) | payer MEDICARE, BC, OTHER | LOC: M RAD 12:13 | PROVIDERS: ATTEND Otolaryngology | DX: R13.10 Dysphagia, unspecified (principal); R93.3 Abnormal findings on diagnostic imaging of other parts of digestive tract ==

== ENCOUNTER 2023-05-02 07:05 | Day surgery (SDC) | payer MEDICARE, BC, OTHER ==
[~2023-05-02] VITALS: Ht 180.3 cm; Wt 72.7 kg
[~2023-05-02 07:05] MED LIST changes: +IBUP200C26 PO; +MAGN400C2 PO; +NS 1,000 ML IV ONE; +VITA500T41 PO; +XALA0.007 OU; +[UNRECOGNIZED DRUG - REMARK] TOP
[2023-05-02] MEDS ORDERED: LIDOCAINE 2% 100MG/5ML SDV (FOR ANES.) As Ordered ONE (07:15)
[2023-05-02] MEDS ORDERED: propofoL 200 MG/20 ML VIAL As Ordered ONE (07:16)
[2023-05-02] MEDS ORDERED: fentaNYL 100 MCG/2 ML INJECTION As Ordered ONE (07:17)
[2023-05-02 08:33] VITALS: TEMP 98
[2023-05-02 08:50] VITALS: BP 139/79; O2SAT 97
== END 2023-05-02 08:57 | disposition home or self-care (01) ==
LOC: M OPP 07:05
PROVIDERS: ATTEND Internal Medicine Gastroenterology
DX: K22.2 Esophageal obstruction (principal); K44.9 Diaphragmatic hernia without obstruction or gangrene; K20.90 Esophagitis, unspecified without bleeding; Z79.899 Other long term (current) drug therapy; Z87.891 Personal history of nicotine dependence
CPT/HCPCS: 43239; 43249; 88305; J3010

== ENCOUNTER → 2023-05-07 | Outpatient (CLI) | payer MEDICARE, BC, OTHER ==
[~2023-05-07] MED LIST changes: -NS 1,000 ML IV ONE
[2023-05-07 10:41] LABS: BLOOD UREA NITROGEN 19 MG/DL (9-23); CREATININE FOR GFR 0.86 MG/DL (0.70-1.30); GLOMERULAR FILTRATION RATE > 60.0 (>42)
== END ==
LOC: M PLALAB 08:57
PROVIDERS: ATTEND Physical Medicine & Rehabilitation
DX: M48.062 Spinal stenosis, lumbar region with neurogenic claudication (principal)

== ENCOUNTER 2023-05-13 10:07 | Outpatient (RCR) | payer MEDICARE, BC, OTHER | END 2023-05-15 | LOC: M ST 10:07 | PROVIDERS: ATTEND Internal Medicine Gastroenterology | DX: R13.13 Dysphagia, pharyngeal phase (principal) ==

== ENCOUNTER 2023-05-28 10:14 | Outpatient (RCR) | payer MEDICARE, BC, OTHER | END 2023-06-15 | LOC: M ST 10:14 | PROVIDERS: ATTEND Internal Medicine Gastroenterology | DX: R11.0 Nausea (principal) ==

== ENCOUNTER → 2023-06-23 | Outpatient (CLI) | payer MEDICARE, BC, OTHER ==
[~2023-06-23] MED LIST changes: +PROHANCE 279.3MG/ML 15ML VIAL As Ordered ONE
== END ==
LOC: M RAD 12:12
PROVIDERS: ATTEND Physical Medicine & Rehabilitation
DX: S83.231A Complex tear of medial meniscus, current injury, right knee, initial encounter (principal); Y93.89 Activity, other specified; Y92.89 Other specified places as the place of occurrence of the external cause; X58.XXXA Exposure to other specified factors, initial encounter; Y99.8 Other external cause status; M79.661 Pain in right lower leg
CPT/HCPCS: 73723; A9576

== ENCOUNTER → 2023-08-21 | Outpatient (CLI) | payer MEDICARE, BC, OTHER ==
[~2023-08-21] MED LIST changes: -PROHANCE 279.3MG/ML 15ML VIAL As Ordered ONE; -SALI0.6530 NARES; +SODI88SP NARES
== END ==
LOC: M RAD 09:27
PROVIDERS: ATTEND Physician Assistant
DX: M48.062 Spinal stenosis, lumbar region with neurogenic claudication (principal)
CPT/HCPCS: 78306; A9503

== ENCOUNTER → 2023-10-07 | Outpatient (CLI) | payer MEDICARE, BC ==
[2023-10-07 13:43] LABS: BASO % 0.8 % (0.0-1.0); EOS # 0.2 10^3/uL (0.0-0.5); EOS % 5.9 % (0.0-3.0); HEMATOCRIT 38.2 % (42.0-52.0); LYMPH # 0.5 10^3/uL (1.5-5.0); MEAN CORPUSCULAR HEMOGLOBIN 36.3 pg (27.0-33.0); MEAN CORPUSCULAR VOLUME 106.7 fl (80.0-96.0); MONO # 0.7 10^3/uL (0.0-0.8); MONO % 17.7 % (2.0-8.0); NEUTROPHILS # 2.2 10^3/uL (1.5-8.5); NEUTROPHILS % 60.3 % (36.0-66.0); PLATELET COUNT, AUTOMATED 164 10^3/uL (150-450); RED BLOOD COUNT 3.58 10^6/uL (4.30-6.10); WHITE BLOOD COUNT 3.7 10^3/uL (4.0-10.0)
[2023-10-07 14:21] LABS: ALKALINE PHOSPHATASE 80 U/L (46-116); ALT/SGPT 9 U/L (7.0-40); AST/SGOT 26 U/L (<34); BILIRUBIN,TOTAL 1.4 MG/DL (0.3-1.2); BLOOD UREA NITROGEN 20 MG/DL (9-23); CALCIUM LEVEL 9.1 MG/DL (8.3-10.6); CARBON DIOXIDE LEVEL 26 MMOL/L (20-31); CHLORIDE LEVEL 104 MMOL/L (98-107); CHOLESTEROL LEVEL 152 MG/DL (<200); CHOLESTEROL RISK RATIO 2.42 (<5); CREATININE FOR GFR 0.98 MG/DL (0.70-1.30); FOLATE 23.19 NG/ML (>5.4); FREE T4 1.05 NG/DL (0.89-1.76); GLOMERULAR FILTRATION RATE > 60.0 (>42); GLUCOSE, FASTING 92 MG/DL (74-106); HDL CHOLESTEROL 62.6 MG/DL (>40); LDL CHOLESTEROL 81.4 MG/DL (<100); NON-HDL-C 89.4 MG/DL; POTASSIUM SERUM 4.1 MMOL/L (3.5-5.1); SODIUM LEVEL 137 MMOL/L (136-145); TOTAL 25(OH) VITAMIN D 21.9 NG/ML (20.0-100.0); TOTAL PROTEIN 6.7 G/DL (5.7-8.2); TRIGLYCERIDES LEVEL 40 MG/DL (<150); VITAMIN B12 LEVEL 536 PG/ML (211-911)
[2023-10-07 14:31] LABS: HEMOGLOBIN A1c 4.3 % (4.0-6.0)
== END ==
LOC: M PLALAB 10:29
PROVIDERS: ATTEND Physician Assistant Medical
DX: E55.9 Vitamin D deficiency, unspecified (principal); D75.89 Other specified diseases of blood and blood-forming organs; I10 Essential (primary) hypertension; E80.4 Gilbert syndrome; R73.01 Impaired fasting glucose; E53.8 Deficiency of other specified B group vitamins; E78.00 Pure hypercholesterolemia, unspecified; R42 Dizziness and giddiness

== ENCOUNTER → 2023-10-13 | Outpatient (CLI) | payer MEDICARE, BC ==
[~2023-10-13] MED LIST changes: +BARIUM SULFATE 700 MG TABLET (E-Z-DISK) As Ordered ONE; +E-Z-PAQUE 96% w/w SUSP 176GM BTL As Ordered ONE; +VARIBAR NECTAR 40% w/v 240ML SUSP BTL As Ordered ONE; +VARIBAR PUDDING 40% w/v 230ML TUBE As Ordered ONE
== END ==
LOC: M RAD 11:17
PROVIDERS: ATTEND Physician Assistant Medical
DX: R13.10 Dysphagia, unspecified (principal)

== ENCOUNTER → 2023-11-07 | Outpatient (CLI) | payer MEDICARE, BC ==
[~2023-11-07] MED LIST changes: -BARIUM SULFATE 700 MG TABLET (E-Z-DISK) As Ordered ONE; -E-Z-PAQUE 96% w/w SUSP 176GM BTL As Ordered ONE; -VARIBAR NECTAR 40% w/v 240ML SUSP BTL As Ordered ONE; -VARIBAR PUDDING 40% w/v 230ML TUBE As Ordered ONE
== END ==
LOC: M PAIN 08:00
PROVIDERS: ATTEND Nurse Practitioner Family
DX: M51.16 Intervertebral disc disorders with radiculopathy, lumbar region (principal); G89.29 Other chronic pain; D46.9 Myelodysplastic syndrome, unspecified; I10 Essential (primary) hypertension; E53.8 Deficiency of other specified B group vitamins; M48.02 Spinal stenosis, cervical region; Z87.891 Personal history of nicotine dependence; Z79.899 Other long term (current) drug therapy; Z91.038 Other insect allergy status; Z91.048 Other nonmedicinal substance allergy status

== ENCOUNTER → 2024-02-05 | Outpatient (CLI) | payer MEDICARE, BC | LOC: M PAIN 11:15 | PROVIDERS: ATTEND Nurse Practitioner Family | DX: M51.16 Intervertebral disc disorders with radiculopathy, lumbar region (principal); G89.29 Other chronic pain; I10 Essential (primary) hypertension; E53.8 Deficiency of other specified B group vitamins; D75.89 Other specified diseases of blood and blood-forming organs; M48.02 Spinal stenosis, cervical region; Z87.891 Personal history of nicotine dependence; Z79.899 Other long term (current) drug therapy; Z79.1 Long term (current) use of non-steroidal anti-inflammatories (NSAID) ==

== ENCOUNTER → 2024-03-02 | Outpatient (CLI) | payer MEDICARE, BC ==
[2024-03-02 14:06] LABS: VITAMIN B12 LEVEL 500 PG/ML (211-911)
[2024-03-02 14:17] LABS: ALBUMIN 3.8 G/DL (3.2-5.2); ALKALINE PHOSPHATASE 67 U/L (46-116); ALT/SGPT 10 U/L (7.0-40); AST/SGOT 20 U/L (<34); BILIRUBIN,TOTAL 1.8 MG/DL (0.3-1.2); BLOOD UREA NITROGEN 12 MG/DL (9-23); CALCIUM LEVEL 9.5 MG/DL (8.3-10.6); CARBON DIOXIDE LEVEL 29 MMOL/L (20-31); CHLORIDE LEVEL 110 MMOL/L (98-107); CREATININE FOR GFR 0.98 MG/DL (0.70-1.30); GLOMERULAR FILTRATION RATE > 60.0 (>42); GLUCOSE, FASTING 96 MG/DL (74-106); POTASSIUM SERUM 4.3 MMOL/L (3.5-5.1); SODIUM LEVEL 142 MMOL/L (136-145); TOTAL PROTEIN 6.8 G/DL (5.7-8.2)
[2024-03-02 15:22] LABS: HEMOGLOBIN A1c 4.6 % (4.0-6.0)
[2024-03-02 16:32] LABS: PTH INTACT 51.3 PG/ML (18.5-88.0)
== END ==
LOC: M PLALAB 09:31
PROVIDERS: ATTEND Physician Assistant Medical
DX: E53.8 Deficiency of other specified B group vitamins (principal); E55.9 Vitamin D deficiency, unspecified; R73.01 Impaired fasting glucose

== ENCOUNTER → 2024-03-18 | Outpatient (CLI) | payer MEDICARE, BC ==
[~2024-03-18] MED LIST changes: +ISOVUE-M 300 61% 15ML VIAL As Ordered ONE; +LIDOCAINE 1% SDV 30ML VIAL As Ordered ONE; +dexAMETHasone 10MG/1ML VIAL PRES.FREE As Ordered ONE; +diazePAM 2 MG TAB As Ordered ONE
[2024-03-18 13:09] LABS: BASO % 0.5 % (0.0-1.0); EOS # 0.2 10^3/uL (0.0-0.5); HEMATOCRIT 37.5 % (42.0-52.0); HEMOGLOBIN 13.1 g/dl (13.5-17.5); LYMPH # 0.6 10^3/uL (1.5-5.0); LYMPH % 15.3 % (24.0-44.0); MEAN CORPUSCULAR HEMOGLOBIN 37.3 pg (27.0-33.0); MEAN CORPUSCULAR HGB CONC 34.9 g/dl (32.0-36.5); MEAN CORPUSCULAR VOLUME 106.8 fl (80.0-96.0); MONO # 0.5 10^3/uL (0.0-0.8); MONO % 13.1 % (2.0-8.0); NEUTROPHILS # 2.7 10^3/uL (1.5-8.5); NEUTROPHILS % 66.1 % (36.0-66.0); PLATELET COUNT, AUTOMATED 145 10^3/uL (150-450); RED BLOOD COUNT 3.51 10^6/uL (4.30-6.10); WHITE BLOOD COUNT 4.1 10^3/uL (4.0-10.0)
[2024-03-18 13:29] LABS: INR 1.14; PARTIAL THROMBOPLASTIN TIME 28.9 SECONDS (24.8-34.2); PROTHROMBIN TIME 14.3 SECONDS (12.5-14.5)
== END ==
LOC: M PAIN 11:00
PROVIDERS: ATTEND Anesthesiology
DX: M51.16 Intervertebral disc disorders with radiculopathy, lumbar region (principal); M48.061 Spinal stenosis, lumbar region without neurogenic claudication; I10 Essential (primary) hypertension; E53.8 Deficiency of other specified B group vitamins; M48.02 Spinal stenosis, cervical region; D46.9 Myelodysplastic syndrome, unspecified; Z87.891 Personal history of nicotine dependence; Z79.1 Long term (current) use of non-steroidal anti-inflammatories (NSAID); Z79.899 Other long term (current) drug therapy
CPT/HCPCS: 36415; 85025; 85027; 85610; 85730; G0463

== ENCOUNTER → 2024-04-21 | Outpatient (CLI) | payer MEDICARE, BC ==
[~2024-04-21] MED LIST changes: -ISOVUE-M 300 61% 15ML VIAL As Ordered ONE; -LIDOCAINE 1% SDV 30ML VIAL As Ordered ONE; -dexAMETHasone 10MG/1ML VIAL PRES.FREE As Ordered ONE; -diazePAM 2 MG TAB As Ordered ONE
== END ==
LOC: M PAIN 16:00
PROVIDERS: ATTEND Anesthesiology
DX: M48.061 Spinal stenosis, lumbar region without neurogenic claudication (principal); G89.29 Other chronic pain; M54.50 Low back pain, unspecified; D46.9 Myelodysplastic syndrome, unspecified; I10 Essential (primary) hypertension; E53.8 Deficiency of other specified B group vitamins; M48.02 Spinal stenosis, cervical region; Z87.891 Personal history of nicotine dependence; Z79.899 Other long term (current) drug therapy

== ENCOUNTER → 2024-05-18 | Outpatient (CLI) | payer MEDICARE, BC | LOC: M RAD 09:08 | PROVIDERS: ATTEND Physician Assistant Medical | DX: R20.9 Unspecified disturbances of skin sensation (principal); I70.0 Atherosclerosis of aorta ==

== ENCOUNTER → 2024-06-28 | Outpatient (CLI) | payer MEDICARE, BC | LOC: M RAD 14:20 | PROVIDERS: ATTEND Physician Assistant Medical | DX: R20.9 Unspecified disturbances of skin sensation (principal); R09.89 Other specified symptoms and signs involving the circulatory and respiratory systems ==

== ENCOUNTER → 2024-07-23 | Outpatient (CLI) | payer MEDICARE, BC ==
[~2024-07-23] MED LIST changes: +LATANOPROST
== END ==
LOC: M PAIN 16:00
PROVIDERS: ATTEND Anesthesiology
DX: M48.062 Spinal stenosis, lumbar region with neurogenic claudication (principal); G89.29 Other chronic pain; M54.50 Low back pain, unspecified; I10 Essential (primary) hypertension; E53.8 Deficiency of other specified B group vitamins; Z79.899 Other long term (current) drug therapy

== ENCOUNTER → 2024-10-19 | Outpatient (CLI) | payer MEDICARE, BC ==
[2024-10-19 14:31] LABS: HEMATOCRIT 40.2 % (42.0-52.0); HEMOGLOBIN 13.7 g/dl (13.5-17.5); MEAN CORPUSCULAR HEMOGLOBIN 35.7 pg (27.0-33.0); MEAN CORPUSCULAR HGB CONC 34.1 g/dl (32.0-36.5); MEAN CORPUSCULAR VOLUME 104.7 fl (80.0-96.0); PLATELET COUNT, AUTOMATED 178 10^3/uL (150-450); RED BLOOD COUNT 3.84 10^6/uL (4.30-6.10); WHITE BLOOD COUNT 3.3 10^3/uL (4.0-10.0)
[2024-10-19 14:59] LABS: ALBUMIN 3.8 G/DL (3.2-5.2); BILIRUBIN,TOTAL 1.4 MG/DL (0.3-1.2); GLOMERULAR FILTRATION RATE 77.5 (>42); POTASSIUM SERUM 4.8 MMOL/L (3.5-5.1); TOTAL PROTEIN 6.8 G/DL (5.7-8.2)
[2024-10-19 15:01] LABS: THYROID STIMULATING HORMONE 2.563 uIU/ML (0.55-4.78)
[2024-10-19 15:09] LABS: ATYPICAL LYMPH 8 % (0-5); BASOPHILS 3 % (0-1); EOSINOPHILS 7 % (0-3); LYMPHOCYTES 17 % (16-44); METAMYELOCYTES 1 % (0-0); MONOCYTES 9 % (0-5); NEUTROPHILS 53 % (28-66)
[2024-10-19 15:10] LABS: PLATELET ESTIMATE NORMAL (NORMAL)
[2024-10-21 17:03] LABS: IgG P18 AB NON-REACTIVE; IgG P23 AB NON-REACTIVE; IgG P28 AB NON-REACTIVE; IgG P30 AB NON-REACTIVE; IgG P39 AB NON-REACTIVE; IgG P41 AB NON-REACTIVE; IgG P45 AB REACTIVE; IgG P58 AB NON-REACTIVE; IgG P66 AB NON-REACTIVE; IgG P93 AB NON-REACTIVE; IgM P23 AB NON-REACTIVE; IgM P39 AB REACTIVE; IgM P41 AB NON-REACTIVE; LYME IgG WB INTERPRETATION NEGATIVE (NEGATIVE); LYME IgM WB INTERPRETATION NEGATIVE (NEGATIVE)
== END ==
LOC: M PLALAB 11:13
PROVIDERS: ATTEND Psychiatry & Neurology Neurology
DX: R41.89 Other symptoms and signs involving cognitive functions and awareness (principal); Z79.899 Other long term (current) drug therapy

== ENCOUNTER → 2024-11-02 | Outpatient (CLI) | payer MEDICARE, BC ==
[2024-11-02 13:35] LABS: BILIRUBIN,TOTAL 1.8 MG/DL (0.3-1.2); CALCIUM LEVEL 9.3 MG/DL (8.3-10.6); CHOLESTEROL RISK RATIO 2.57 (<5); GLOMERULAR FILTRATION RATE 77.5 (>42); HDL CHOLESTEROL 68.3 MG/DL (>40); LDL CHOLESTEROL 98.5 MG/DL (<100); NON-HDL-C 107.7 MG/DL; POTASSIUM SERUM 4.4 MMOL/L (3.5-5.1)
== END ==
LOC: M PLALAB 09:11
PROVIDERS: ATTEND Physician Assistant Medical
DX: E78.00 Pure hypercholesterolemia, unspecified (principal); I10 Essential (primary) hypertension

== ENCOUNTER → 2025-02-10 | Outpatient (CLI) | payer MEDICARE, BC | LOC: M RAD 09:56 | PROVIDERS: ATTEND Physician Assistant Medical | DX: N28.1 Cyst of kidney, acquired (principal); N20.0 Calculus of kidney; K80.20 Calculus of gallbladder without cholecystitis without obstruction; R10.11 Right upper quadrant pain ==

== ENCOUNTER 2025-03-29 05:53 | Emergency (ER) | payer MEDICARE, BC, OTHER ==
[~2025-03-29] VITALS: Ht 180.3 cm; Wt 56.4 kg
[2025-03-29] MEDS ORDERED: AMOX875T2 PO (07:31)
[2025-03-29] MEDS ORDERED: XALA0.007 (07:34)
[2025-03-29] MEDS ORDERED: CVS55SPR NARES (07:34)
[2025-03-29] MEDS: KETOROLAC 30 MG/ML 1 ML VIAL IM ONE (08:39)
[2025-03-29] MEDS ORDERED: METH-1164 PO (10:03)
[2025-03-29 10:23] VITALS: BP 130/66; TEMP 96.6; O2SAT 100
== END 2025-03-29 10:25 | disposition home or self-care (01) ==
LOC: M ED 05:53
DX: M62.830 Muscle spasm of back (principal); Z79.1 Long term (current) use of non-steroidal anti-inflammatories (NSAID); Z79.899 Other long term (current) drug therapy; Z91.048 Other nonmedicinal substance allergy status
CPT/HCPCS: 72131; 96372; 99283; J1885

== ENCOUNTER → 2025-04-04 | Outpatient (CLI) | payer MEDICARE, BC ==
[~2025-04-04] MED LIST changes: +AMOX875T2 PO; +CVS55SPR NARES; +METH-1164 PO; +PROHANCE 279.3MG/ML 15ML VIAL As Ordered ONE; +XALA0.007
== END ==
LOC: M RAD 08:52
PROVIDERS: ATTEND Physical Medicine & Rehabilitation
DX: M47.896 Other spondylosis, lumbar region (principal)
CPT/HCPCS: 72158; 76604; A9576

== ENCOUNTER → 2025-05-05 | Outpatient (CLI) | payer MEDICARE, BC ==
[~2025-05-05] MED LIST changes: -PROHANCE 279.3MG/ML 15ML VIAL As Ordered ONE
[2025-05-05 13:33] LABS: BASO # 0.0 10^3/uL (0.0-0.2); BASO % 0.5 % (0.0-1.0); EOS # 0.3 10^3/uL (0.0-0.5); EOS % 6.7 % (0.0-3.0); LYMPH # 0.6 10^3/uL (1.5-5.0); LYMPH % 15.7 % (24.0-44.0); MONO # 0.6 10^3/uL (0.0-0.8); MONO % 15.9 % (2.0-8.0); NEUTROPHILS # 2.4 10^3/uL (1.5-8.5); NEUTROPHILS % 59.7 % (36.0-66.0); PLATELET COUNT, AUTOMATED 168 10^3/uL (150-450)
== END ==
LOC: M PLALAB 09:24
PROVIDERS: ATTEND Physician Assistant Medical
DX: M50.30 Other cervical disc degeneration, unspecified cervical region (principal)